=== PATIENT | male | born 1960 | race Caucasian/White ===

== ENCOUNTER 2018-11-13 07:28 | Day surgery (SDC) | payer OTHER ==
[2018-11-08 12:58] VITALS: BMI 28.5
[2018-11-13] MEDS ORDERED: PROPOFOL 20 ML ONE ×2 (08:19)
[2018-11-13] MEDS ORDERED: LIDOCAINE HCL/PF 2% SDV 5ML VIAL ONE (08:19)
[2018-11-13 09:01] VITALS: TEMP 97.9
[2018-11-13 09:25] VITALS: BP 108/53; PULSE 61
--- NOTE | 2018-11-15 16:30 | PATH ---
Surgical Pathology Report Patient Name: ANA MARIA JONES [facility]. Rec. #: [id number] /Age/Gender: 1960 (Age: 58) / F Account: [id number] Location: [facility] Taken: 11/13/2018 Received: 11/13/2018 Reported: 11/15/2018 Physicians: Jose L Dean M.D. Specimen(s) Received LEFT COLON POLYP Clinical History Rule out colon cancer Postoperative diagnosis: Diverticulosis, polyp Final Diagnosis COLON, LEFT, POLYP, BIOPSY: TUBULAR ADENOMA. Electronically Signed Diana Little M.D. Gross Description Received in formalin, labeled "polyp left colon" are 2 alexander, irregular portions of soft tissue measuring 0.2 and 0.4 cm. in greatest dimension. The specimens are submitted in toto in one cassette. /11/14/201811/14/2018
== END 2018-11-13 09:30 | disposition home or self-care (01) ==
LOC: EDSEX → FASU-ENDO 07:28 → MERGE 07:28 → FASU-ENDO 09:30
PROVIDERS: ATTEND Internal Medicine Gastroenterology
PROC: 0DBM8ZX Excision of Descending Colon, Via Natural or Artificial Opening Endoscopic, Diagnostic (ICD-10-PCS; principal; 2018-11-13 08:37)
DX: Z86.010 Personal history of colon polyps (principal); D12.4 Benign neoplasm of descending colon; K57.30 Diverticulosis of large intestine without perforation or abscess without bleeding
CPT/HCPCS: 88305-TC